=== PATIENT | female | born 1980 | race Caucasian/White ===

== ENCOUNTER 2021-11-02 13:00 | Emergency (ER) | payer OTHER ==
[2021-11-02] MEDS ORDERED: Sodium Chloride 0.9% 10 ML Syringe FLUSH PRN (15:01)
[2021-11-02] MEDS ORDERED: Ondansetron 4 MG/2 ML SDV IVPUSH ONE (15:03)
[2021-11-02] MEDS ORDERED: fentaNYL 100 MCG/2 ML SDV IVPUSH ONE (15:03)
[2021-11-02] MEDS ORDERED: Pantoprazole 40 MG Vial IVPUSH ONE (15:04)
[2021-11-02] MEDS ORDERED: Lactated Ringers 1,000 ML IV SCH (15:15)
[2021-11-02 15:43] LABS: ESTIMATED GFR 95 mL/min (>60); TROPONIN I HIGH SENSITIVITY 5.9 pg/mL (<=60.3)
[2021-11-02] MEDS ORDERED: Alum Hydrox/Mag Hydrox/Simeth 15 ML, Lidocaine 2% 15 ML PO ONE ×2 (16:16)
[2021-11-02] MEDS ORDERED: Iopamidol 612 MG/ML 100 ML Bottle IV SCH (16:45)
[2021-11-02] MEDS ORDERED: Sodium Chloride 0.9% 75 ML IV SCH (16:45)
== END 2021-11-02 18:25 | disposition home or self-care (01) ==
LOC: JP.ED 13:00
DX: K29.01 Acute gastritis with bleeding (principal); F17.210 Nicotine dependence, cigarettes, uncomplicated; Z88.0 Allergy status to penicillin; Z88.2 Allergy status to sulfonamides; Z88.1 Allergy status to other antibiotic agents; Z20.822 Contact with and (suspected) exposure to COVID-19
CPT/HCPCS: 36415; 74018; 74177; 80053; 83605; 83690; 84484; 85025; 87635; 96361; 96374; 96375; 99282; 99284; A9270; C9113; J2405; J3010; J3490; J7120; Q9967; U0002

== ENCOUNTER 2021-11-04 09:45 | Day surgery (SDC) | payer OTHER ==
[2021-11-04] MEDS ORDERED: Dextrose 5%-Lactated Ringers 1,000 ML IV SCH (10:15)
[2021-11-04] MEDS ORDERED: Propofol 200 MG/20 ML SDV ONE ×2 (10:23→10:54)
[2021-11-04] MEDS ORDERED: Midazolam 1 MG/ML 2 ML SDV ONE ×3 (10:24→10:55)
[2021-11-04] MEDS ORDERED: fentaNYL 100 MCG/2 ML SDV ONE ×2 (10:24→10:55)
[2021-11-04] MEDS ORDERED: Glycopyrrolate 0.2 MG/ML 2 ML SDV IVPUSH ONE (11:00)
[2021-11-04] MEDS ORDERED: Pantoprazole 40 MG Vial IVPUSH ONE (11:43)
[2021-11-04] MEDS ORDERED: HYDROmorphone 1 MG/ML Syringe IVPUSH ONE (12:23)
[2021-11-04] MEDS ORDERED: LORazepam 2 MG/ML SDV IVPUSH ONE (13:13)
== END 2021-11-04 14:05 | disposition home or self-care (01) ==
LOC: JP.SDS 09:45
PROVIDERS: ATTEND Surgery
DX: K29.70 Gastritis, unspecified, without bleeding (principal); B96.81 Helicobacter pylori [H. pylori] as the cause of diseases classified elsewhere; E78.5 Hyperlipidemia, unspecified; Z88.0 Allergy status to penicillin; Z88.2 Allergy status to sulfonamides; Z88.1 Allergy status to other antibiotic agents; Z79.899 Other long term (current) drug therapy
CPT/HCPCS: 43239; 87081; C9113; J1170; J2060; J2250; J2704; J3010; J3490; J7121; 88305; 88342

== ENCOUNTER 2022-05-06 09:42 | Emergency (ER) | payer OTHER ==
[2022-05-06] MEDS ORDERED: Sodium Chloride 0.9% 10 ML Syringe FLUSH PRN ×2 (10:46→11:10)
[2022-05-06] MEDS ORDERED: fentaNYL 100 MCG/2 ML SDV IVPUSH ONE (10:48)
[2022-05-06] MEDS ORDERED: Ondansetron 4 MG/2 ML SDV IVPUSH ONE (10:48)
[2022-05-06] MEDS ORDERED: Lactated Ringers 1,000 ML IV SCH (11:00)
[2022-05-06] MEDS ORDERED: Iopamidol 612 MG/ML 100 ML Bottle IV PRN (11:10)
[2022-05-06] MEDS ORDERED: Sodium Chloride 0.9% 50 ML IV SCH (11:15)
[2022-05-06] MEDS ORDERED: LORazepam 2 MG/ML SDV IVPUSH ONE ×2 (11:25→12:32)
[2022-05-06 11:37] LABS: ESTIMATED GFR 111 mL/min (>60)
[2022-05-06] MEDS ORDERED: Ketorolac 30 MG/ML SDV IM ONE (12:32)
[2022-05-06] MEDS ORDERED: HYDROmorphone 1 MG/ML Syringe IVPUSH ONE (13:09)
== END 2022-05-06 14:30 | disposition home or self-care (01) ==
LOC: JP.ED 09:42
DX: R10.12 Left upper quadrant pain (principal); F17.210 Nicotine dependence, cigarettes, uncomplicated; Z88.0 Allergy status to penicillin; Z88.1 Allergy status to other antibiotic agents; Z88.2 Allergy status to sulfonamides
CPT/HCPCS: 36415; 74177; 76856; 80053; 81001; 83605; 83690; 85025; 93976; 96361; 96372; 96374; 96375; 96376; 99283; 99284; J1170; J1885; J2060; J2405; J3010; J3490; J7120; Q9967

== ENCOUNTER 2022-06-05 09:24 | Emergency (ER) | payer OTHER ==
[2022-06-05] MEDS ORDERED: fentaNYL 100 MCG/2 ML SDV IM ONE (10:01)
[2022-06-05 10:39] LABS: ESTIMATED GFR 111 mL/min (>60)
== END 2022-06-05 11:10 | disposition home or self-care (01) ==
LOC: JP.ED 09:24
DX: R10.2 Pelvic and perineal pain (principal); Z88.1 Allergy status to other antibiotic agents; Z88.0 Allergy status to penicillin; Z88.2 Allergy status to sulfonamides
CPT/HCPCS: 36415; 80053; 83605; 84484; 85025; 96372; 99284; J3010

== ENCOUNTER 2024-11-22 20:15 | Emergency (ER) | payer OTHER ==
[2024-11-22 21:25] LABS: BASOPHILS PERCENT AUTO 0.3 % (0.1-1.3); EOSINOPHILS ABSOLUTE AUTO 0.17 K/uL (0.00-0.40); EOSINOPHILS PERCENT AUTO 2.4 % (0.0-5.4); IMMATURE GRAN PERCENT AUTO 0.1 % (0.0-0.7); LYMPHOCYTES ABSOLUTE AUTO 2.01 K/uL (0.8-3.3); LYMPHOCYTES PERCENT AUTO 28.3 % (11.4-47.7); MONOCYTES ABSOLUTE AUTO 0.58 K/uL (0.20-0.90); MONOCYTES PERCENT AUTO 8.2 % (3.3-12.6); NEUTROPHILS ABSOLUTE AUTO 4.31 K/uL (1.0-7.6); NEUTROPHILS PERCENT AUTO 60.7 % (40.0-78.1); PLATELET COUNT,PLT 200 K/uL (130-375); RED BLOOD CELL COUNT 4.01 M/uL (3.77-5.24); WHITE BLOOD CELL COUNT,WBC 7.1 K/uL (3.2-11.0)
[2024-11-22 21:28] LABS: BASOPHILS ABSOLUTE AUTO 0.02 K/uL (0.00-0.10); IMMATURE GRAN ABSOLUTE AUTO 0.01 K/uL (0.00-0.23)
[2024-11-22] MEDS: Ondansetron 4 MG/2 ML SDV IVPUSH ONE (21:29)
[2024-11-22] MEDS: fentaNYL 100 MCG/2 ML SDV IVPUSH ONE (21:33)
[2024-11-22 21:47] LABS: A/G RATIO 1.1 (1.2-2.2); ALANINE AMINOTRANSFERASE,ALT 27 U/L (12-78); ASPARTATE AMNIOTRANSFERASE,AST 19 U/L (15-37); BILIRUBIN TOTAL 0.2 mg/dL (0.2-1.0); BLOOD UREA NITROGEN,BUN 12 mg/dL (7-18); CARBON DIOXIDE,CO2 28 mmol/L (21-32); CHLORIDE,CL 96 mmol/L (100-108); CREATININE 0.9 mg/dL (0.6-1.0); EST CRCL DRUG DOSING (CG) 90.08 mL/min; ESTIMATED GFR 81 mL/min (>60); GLUCOSE RANDOM 100 mg/dL (74-106); POTASSIUM,K 3.6 mmol/L (3.6-5.2); PROTEIN TOTAL,TP 6.8 g/dL (6.4-8.2); SODIUM,NA 128 mmol/L (140-148)
[2024-11-22] MEDS: Iopamidol 612 MG/ML 100 ML Bottle IV ONE (22:13)
[2024-11-22] MEDS: Sodium Chloride 0.9% 10 ML Syringe FLUSH ONE (22:13)
[2024-11-22] MEDS: Sodium Chloride 0.9% 10 ML Syringe FLUSH PRN (22:51)
[2024-11-22] MEDS: Ketorolac 30 MG/ML SDV IVPUSH ONE (23:25)
== END 2024-11-23 00:17 | disposition home or self-care (01) ==
LOC: JP.ED 20:15
DX: R10.12 Left upper quadrant pain (principal); R10.33 Periumbilical pain; E87.1 Hypo-osmolality and hyponatremia; I25.10 Atherosclerotic heart disease of native coronary artery without angina pectoris; I10 Essential (primary) hypertension; I25.2 Old myocardial infarction; F17.210 Nicotine dependence, cigarettes, uncomplicated; Z79.899 Other long term (current) drug therapy; Z90.710 Acquired absence of both cervix and uterus; Z88.0 Allergy status to penicillin; Z88.1 Allergy status to other antibiotic agents; Z88.2 Allergy status to sulfonamides
CPT/HCPCS: 36415; 74177; 80053; 83605; 83690; 85025; 96361; 96374; 96375; 99284; J1171; J1790; J1885; J2405; J3010; J7030; Q9967